=== PATIENT | male | born 1965 | race Caucasian/White ===

== ENCOUNTER → 2022-06-17 09:34 | Outpatient (CLI) | payer OTHER, MEDICAID, SELFPAY ==
[2022-06-17 19:31] LABS: Cholesterol 139 mg/dL (140-199); HDL Cholesterol 61 mg/dL (40-60); LDL Cholesterol Calculated 59 mg/dL (<100); Triglycerides 94 mg/dL (35-150)
== END ==
PROVIDERS: PCP Family Medicine; Visit Provider Family Medicine
DX: E78.2 Mixed hyperlipidemia (principal)
CPT/HCPCS: 80061

== ENCOUNTER → 2023-07-14 13:10 | Outpatient (CLI) | payer OTHER, MEDICAID, SELFPAY ==
[2023-07-14 19:57] LABS: Alanine Aminotransferase 29 IU/L (<50); Albumin 3.7 g/dL (3.5-5.0); Albumin Globulin Ratio 1.5 (1.0-2.8); Alkaline Phosphatase 65 U/L (38-126); Aspartate Aminotransferase 28 IU/L (17-59); BUN Creatinine Ratio 20.6 (6-22); Bilirubin Total 0.2 mg/dL (0.2-1.3); Blood Urea Nitrogen 13 mg/dL (9-20); Calcium 9.3 mg/dL (8.4-10.2); Carbon Dioxide 23 mmol/L (22-32); Chloride 93 mmol/L (98-107); Cholesterol 232 mg/dL (140-199); Estimated Glomerular Filt Rate > 60 mL/min (>60); Globulin 2.5 g/dL (1.7-4.1); Glucose 99 mg/dL (70-100); HDL Cholesterol 48 mg/dL (40-60); HEMOLYSIS < 15 (0-50); LDL Cholesterol Calculated 134 mg/dL (<100); Potassium 4.3 mmol/L (3.4-5.1); Sodium 122 mmol/L (137-145); Total Protein 6.2 g/dL (6.3-8.2); Triglycerides 249 mg/dL (35-150)
[2023-07-14 20:00] LABS: Add Manual Diff / Slide Review NO; Basophils Absolute Auto 0 /uL (0-100); Basophils Percent Auto 0.8 % (0-2); Eosinophils Absolute Auto 200 /uL (0-450); Eosinophils Percent Auto 2.6 % (2-4); Hematocrit 35.3 % (41-53); Hemoglobin 12.5 g/dL (13.5-17.5); Lymphocytes Absolute Auto 2300 /uL (1100-4500); Lymphocytes Percent Auto 36.7 % (25-40); Mean Corpuscular HGB Conc 35.5 % (30-36); Mean Corpuscular Hemoglobin 30.8 PG (26-34); Mean Corpuscular Volume 86.9 fL (80-100); Monocytes Absolute Auto 800 /uL (0-900); Monocytes Percent Auto 12.9 % (3-14); Neutrophils Absolute Auto 2900 /uL (1500-7000); Platelet Count 331 X10^3/uL (150-400); Red Blood Cell Count 4.07 X10^6/uL (4.5-5.9); Red Cell Distribution Width 13.6 % (11.6-14.8); White Blood Cell Count 6.2 X10^3/uL (4.5-11.0)
[2023-07-14 20:12] LABS: Vitamin D 25 Hydroxy (D3) 28.8 ng/mL (30.0-100.0)
[2023-07-14 20:25] LABS: TSH w/ Reflex to FT4 < 0.02 uIU/mL (0.47-4.68)
[2023-07-14 20:47] LABS: Vitamin B12 296 pg/mL (239-931)
[2023-07-14 20:51] LABS: Free T4, Direct Thyroxine 1.13 ng/dL (0.78-2.19)
== END ==
PROVIDERS: PCP Family Medicine; Visit Provider Family Medicine
DX: E78.2 Mixed hyperlipidemia (principal); F17.200 Nicotine dependence, unspecified, uncomplicated; E23.0 Hypopituitarism; E87.5 Hyperkalemia; E23.2 Diabetes insipidus
CPT/HCPCS: 80053; 80061; 82306; 82607; 84439; 84443; 85025

== ENCOUNTER → 2023-07-25 11:54 | Outpatient (CLI) | payer OTHER, MEDICAID, SELFPAY ==
[2023-07-25 19:56] LABS: Blood Urea Nitrogen 18 mg/dL (9-20); Calcium 9.5 mg/dL (8.4-10.2); Carbon Dioxide 25 mmol/L (22-32); Chloride 104 mmol/L (98-107); Estimated Glomerular Filt Rate > 60 mL/min (>60); Glucose 100 mg/dL (70-100); HEMOLYSIS < 15 (0-50); Potassium 4.5 mmol/L (3.4-5.1); Sodium 137 mmol/L (137-145)
== END ==
PROVIDERS: PCP Family Medicine; Visit Provider Family Medicine
DX: E87.1 Hypo-osmolality and hyponatremia (principal); E23.2 Diabetes insipidus; E23.0 Hypopituitarism
CPT/HCPCS: 80048

== ENCOUNTER → 2024-07-25 09:16 | Outpatient (CLI) | payer OTHER, MEDICAID, SELFPAY ==
[2024-07-25 19:27] LABS: Add Manual Diff / Slide Review NO; Basophils Absolute Auto 100 /uL (0-100); Basophils Percent Auto 0.8 % (0-2); Eosinophils Absolute Auto 200 /uL (0-450); Eosinophils Percent Auto 1.7 % (2-4); Hematocrit 41.3 % (41-53); Hemoglobin 13.9 g/dL (13.5-17.5); Lymphocytes Absolute Auto 2500 /uL (1100-4500); Lymphocytes Percent Auto 25.5 % (25-40); Mean Corpuscular HGB Conc 33.6 % (30-36); Mean Corpuscular Hemoglobin 30.1 PG (26-34); Mean Corpuscular Volume 89.7 fL (80-100); Monocytes Absolute Auto 800 /uL (0-900); Monocytes Percent Auto 7.8 % (3-14); Neutrophils Absolute Auto 6400 /uL (1500-7000); Neutrophils Percent Auto 64.2 % (50-75); Platelet Count 304 X10^3/uL (150-400); Red Cell Distribution Width 13.8 % (11.6-14.8); White Blood Cell Count 9.9 X10^3/uL (4.5-11.0)
[2024-07-25 19:33] LABS: BUN Creatinine Ratio 22.7 (6-22); Blood Urea Nitrogen 15 mg/dL (9-20); Calcium 9.2 mg/dL (8.4-10.2); Carbon Dioxide 24 mmol/L (22-32); Chloride 99 mmol/L (98-107); Cholesterol 157 mg/dL (140-199); Estimated Glomerular Filt Rate > 60 mL/min (>60); Glucose 142 mg/dL (70-100); HDL Cholesterol 59 mg/dL (40-60); HEMOLYSIS 29 (0-50); LDL Cholesterol Calculated 65 mg/dL (<100); Potassium 4.5 mmol/L (3.4-5.1); Sodium 129 mmol/L (137-145); Triglycerides 167 mg/dL (35-150)
[2024-07-25 20:09] LABS: TSH w/ Reflex to FT4 < 0.02 uIU/mL (0.47-4.68)
[2024-07-25 20:49] LABS: Free T4, Direct Thyroxine 1.45 ng/dL (0.78-2.19)
== END ==
PROVIDERS: PCP Family Medicine; Visit Provider Family Medicine
DX: E87.1 Hypo-osmolality and hyponatremia (principal); E03.9 Hypothyroidism, unspecified; E23.0 Hypopituitarism; E23.2 Diabetes insipidus; E78.2 Mixed hyperlipidemia; E87.5 Hyperkalemia
CPT/HCPCS: 80048; 80061; 82533; 84439; 84443; 85025

== ENCOUNTER → 2024-12-28 11:45 | Outpatient (CLI) | payer OTHER, SELFPAY ==
[2024-12-31 12:08] LABS: Fecal Immunochemical Test Negative (Negative)
== END ==
PROVIDERS: PCP Family Medicine; Visit Provider Family Medicine
DX: Z12.12 Encounter for screening for malignant neoplasm of rectum (principal); Z12.11 Encounter for screening for malignant neoplasm of colon
CPT/HCPCS: 82274

== ENCOUNTER → 2025-08-15 08:09 | Outpatient (CLI) | payer OTHER, SELFPAY ==
[2025-08-15 19:38] LABS: Blood Urea Nitrogen 22 mg/dL (9-20); Calcium 9.0 mg/dL (8.4-10.2); Carbon Dioxide 23 mmol/L (22-32); Chloride 104 mmol/L (98-107); Estimated Glomerular Filt Rate > 60 mL/min (>60); Glucose 99 mg/dL (70-99); HEMOLYSIS 17 (0-50); Potassium 4.2 mmol/L (3.4-5.1); Sodium 135 mmol/L (137-145)
[2025-08-15 20:07] LABS: TSH w/ Reflex to FT4 < 0.02 uIU/mL (0.47-4.68)
[2025-08-15 20:21] LABS: Cortisol AM (Before 10AM) 0.81 ug/dL (4.46-22.7)
[2025-08-15 21:20] LABS: Free T4, Direct Thyroxine 1.64 ng/dL (0.78-2.19)
== END ==
PROVIDERS: PCP Family Medicine; Visit Provider Family Medicine
DX: E27.2 Addisonian crisis (principal)
CPT/HCPCS: 80048; 82533; 84439; 84443